=== PATIENT | female | born 1990 ===

== ENCOUNTER 2024-09-01 10:50 | Outpatient (CLI) | payer OTHER | END 2024-09-01 10:51 | disposition home or self-care (01) | LOC: PRENATAL 10:50 | PROVIDERS: ATTEND Obstetrics & Gynecology Maternal & Fetal Medicine | DX: O44.00 Complete placenta previa NOS or without hemorrhage, unspecified trimester (principal); O99.280 Endocrine, nutritional and metabolic diseases complicating pregnancy, unspecified trimester; Z3A.22 22 weeks gestation of pregnancy ==

== ENCOUNTER → 2024-11-02 11:44 | Outpatient (CLI) | payer OTHER | END | disposition home or self-care (01) | LOC: PRENATAL 11:44 | PROVIDERS: ATTEND Obstetrics & Gynecology Maternal & Fetal Medicine | DX: O26.849 Uterine size-date discrepancy, unspecified trimester (principal); O36.8199 Decreased fetal movements, unspecified trimester, other fetus; O99.280 Endocrine, nutritional and metabolic diseases complicating pregnancy, unspecified trimester; Z3A.32 32 weeks gestation of pregnancy ==

== ENCOUNTER 2024-12-14 13:14 | Outpatient (CLI) | payer OTHER | END 2024-12-14 13:15 | disposition home or self-care (01) | LOC: PRENATAL 13:14 | PROVIDERS: ATTEND Obstetrics & Gynecology Maternal & Fetal Medicine | DX: O26.849 Uterine size-date discrepancy, unspecified trimester (principal); O36.8199 Decreased fetal movements, unspecified trimester, other fetus; O99.280 Endocrine, nutritional and metabolic diseases complicating pregnancy, unspecified trimester; Z3A.37 37 weeks gestation of pregnancy ==